=== PATIENT | female | born 1935 | race Caucasian/White ===

== ENCOUNTER 2018-09-16 13:37 | Inpatient (IN) | payer MEDICARE, MEDICAID ==
[~2018-09-16] VITALS: Ht 152.4 cm; Wt 79.8 kg
[2018-09-16 13:59] VITALS: BP 128/59
[2018-09-16] MEDS ORDERED: ADVAIR 250-501 EACH INH (14:16)
[2018-09-16] MEDS ORDERED: CARVEDILOL3.125 MG PO (14:16)
[2018-09-16] MEDS ORDERED: ASPIRIN81 M2 PO (14:16)
[2018-09-16] MEDS ORDERED: EXELON1 EAC2 TRANSDERM (14:17)
[2018-09-16] MEDS ORDERED: CALCIUM 500 +1 EAC5 PO (14:18)
[2018-09-16] MEDS ORDERED: ZOCOR20 MG PO (14:18)
[2018-09-16] MEDS ORDERED: VERAPAMIL E.R240 M1 PO (14:18)
[2018-09-16] MEDS ORDERED: REMERON15 MG PO (14:18)
[2018-09-16] MEDS ORDERED: COUMADIN 1MG TAB1 M1 PO ×2 (14:20→14:21)
[2018-09-16] MEDS ORDERED: TYLENOL EXTRA500 MG PO (14:21)
[2018-09-16] MEDS ORDERED: VENTOLIN HFA 1818 GM INH (14:22)
[2018-09-16 14:47] LABS: ABSOLUTE BASOPHILS 0.1 thou/uL (0.0-0.2); ABSOLUTE EOSINOPHILS 0.3 thou/uL (0.0-0.7); ABSOLUTE MONOCYTES 0.6 thou/uL (0.0-1.2); ABSOLUTE NEUTROPHILS 4.3 thou/uL (1.6-8.1); BASOPHILS 1.1 %; EOSINOPHILS 4.1 %; HEMATOCRIT 28.8 % (37.0-47.0); LYMPHOCYTES 15.7 %; MCH 33.7 pg (26.0-34.0); MCHC 34.7 g/dL (28.0-37.0); MCV 97.2 fL (80.0-100.0); MPV 8.3 fl. (7.2-11.1); NUCLEATED RBCS 0 /100WBC; PLATELET COUNT* 141 thou/uL (150-400); POLYS 69.1 %; RBC 2.97 mil/uL (4.20-5.00); RDW-CV 14.1 % (10.5-14.5); WBC 6.2 thou/uL (4.0-11.0)
[2018-09-16 14:57] LABS: ANION GAP 7 mmol/L (7-16); BUN 29 mg/dL (7-18); CALCIUM 8.2 mg/dL (8.5-10.1); CHLORIDE 102 mmol/L (98-107); CO2 29 mmol/L (21-32); CREATININE 1.8 mg/dL (0.6-1.3); GLUCOSE 105 mg/dL (70-99); POTASSIUM 4.1 mmol/L (3.5-5.1); SODIUM 138 mmol/L (136-145)
[2018-09-16 14:58] LABS: PROTIME 20.6 Seconds (9.20-11.50)
[2018-09-16 15:04] LABS: ALBUMIN 2.9 g/dL (3.4-5.0); ALKALINE PHOSPHATASE 62 U/L (46-116); LIPASE 79 U/L (73-393); SGOT 16 U/L (15-37); SGPT 18 U/L (30-65); TOTAL BILIRUBIN 0.7 mg/dL (<0.1-1.0); TOTAL PROTEIN 6.3 g/dL (6.4-8.2); TROPONIN-I LEVEL <0.06 ng/mL (<0.06)
[2018-09-16 16:22] LABS: URINE BILIRUBIN NEGATIVE (Negative); URINE BLOOD NEGATIVE (Negative); URINE CLARITY CLEAR; URINE COLOR YELLOW; URINE GLUCOSE-RANDOM NEGATIVE (Negative); URINE KETONES NEGATIVE (Negative); URINE LEUKOCYTES-REFLEX 1+ (Negative); URINE NITRITE-REFLEX NEGATIVE (Negative); URINE PROTEIN NEGATIVE (Negative); URINE UROBILINOGEN 0.2 E.U./dl (0.2-1.0)
[2018-09-16 16:31] LABS: BACTERIA-REFLEX 1-9 Few /HPF (None Seen); CASTS None Seen /LPF (None Seen); CRYSTALS None Seen /LPF (None Seen); SQUAMOUS >10 Many /LPF (0-3); URINE RBC None Seen /HPF (0-2)
[2018-09-16 17:56] VITALS: BP 108/63
[2018-09-16 18:51] VITALS: BP 135/63
[2018-09-16 20:00] VITALS: BP 104/72
[2018-09-17 00:15] VITALS: BP 123/55
[2018-09-17 04:00] VITALS: BP 133/64
[2018-09-17 08:00] VITALS: BP 134/62
[2018-09-17 12:00] VITALS: BP 126/50
--- NOTE | 2018-09-17 12:41 | EKG ---
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[place] : [id number] Requested By: Payal Booth Order Number: [id number] MD: Erick Rooney Measurements Intervals [place] Rate: 70 P: ND: 204 QRS: 205 QRSD: 148 T: 35 QT: 433 QTc: 468 Interpretive Statements Atrial-paced rhythm Nonspecific intraventricular conduction delay Inferior infarct, old Probable lateral infarct, age indeterminate No previous ECG available for comparison Electronically Signed On 09-17-2018 12:41:12 RAPID TRANSIT OPERATOR by Erick Rooney [email or web address] <ELECTRONICALLY SIGNED> By: Erick Rooney MD, FAC 09/17/18 1241 1435 1435 Erick Rooney MD, [facility] /EPI
[2018-09-17 16:00] VITALS: BP 125/52
[2018-09-17 21:00] VITALS: BP 139/63
[2018-09-18] VITALS (7 sets, daily range): BP systolic 113–146; BP diastolic 57–66
[2018-09-18 05:05] LABS: HEMATOCRIT 24.9 % (37.0-47.0); HEMOGLOBIN 8.7 gm/dL (12.0-15.0); MCHC 34.7 g/dL (28.0-37.0); MCV 97.9 fL (80.0-100.0); MPV 8.5 fl. (7.2-11.1); RBC 2.55 mil/uL (4.20-5.00); RDW-CV 14.1 % (10.5-14.5); WBC 5.9 thou/uL (4.0-11.0)
[2018-09-18 05:23] LABS: BE -1.3 mmol/L (-2 to +3); HCO3 22.9 mmol/L (22.0-26.0); PCO2 36.1 mmHg (35.0-45.0)
[2018-09-18 05:25] LABS: PO2 360.3 mmHg (75.0-100.0)
[2018-09-18 05:41] LABS: URINE BILIRUBIN NEGATIVE (Negative); URINE BLOOD NEGATIVE (Negative); URINE CLARITY CLEAR; URINE COLOR YELLOW; URINE GLUCOSE-RANDOM NEGATIVE (Negative); URINE KETONES NEGATIVE (Negative); URINE LEUKOCYTES-REFLEX NEGATIVE (Negative); URINE NITRITE-REFLEX NEGATIVE (Negative); URINE PROTEIN NEGATIVE (Negative); URINE SPECIFIC GRAVITY 1.015 (1.005-1.030); URINE UROBILINOGEN 0.2 E.U./dl (0.2-1.0)
[2018-09-18 05:43] LABS: CALCIUM 7.8 mg/dL (8.5-10.1); CREATININE 1.4 mg/dL (0.6-1.3); MAGNESIUM 1.9 mg/dL (1.8-2.4); POTASSIUM 4.2 mmol/L (3.5-5.1)
[2018-09-19 04:00] VITALS: BP 151/72
[2018-09-19 07:54] VITALS: BP 139/58
[2018-09-19 09:52] LABS: ABSOLUTE BASOPHILS 0.1 thou/uL (0.0-0.2); ABSOLUTE EOSINOPHILS 0.4 thou/uL (0.0-0.7); ABSOLUTE MONOCYTES 0.4 thou/uL (0.0-1.2); ABSOLUTE NEUTROPHILS 4.3 thou/uL (1.6-8.1); BASOPHILS 1.2 %; HEMATOCRIT 29.2 % (37.0-47.0); HEMOGLOBIN 10.1 gm/dL (12.0-15.0); LYMPHOCYTES 16.7 %; MCH 33.8 pg (26.0-34.0); MCHC 34.4 g/dL (28.0-37.0); MCV 98.3 fL (80.0-100.0); MONOCYTES 6.2 %; MPV 7.7 fl. (7.2-11.1); NUCLEATED RBCS 0 /100WBC; PLATELET COUNT* 204 thou/uL (150-400); POLYS 69.9 %; RBC 2.97 mil/uL (4.20-5.00); RDW-CV 14.4 % (10.5-14.5); WBC 6.1 thou/uL (4.0-11.0)
[2018-09-19 10:04] LABS: ALBUMIN 2.8 g/dL (3.4-5.0); CALCIUM 8.6 mg/dL (8.5-10.1); CREATININE 1.5 mg/dL (0.6-1.3); TOTAL BILIRUBIN 1.2 mg/dL (<0.1-1.0); TOTAL PROTEIN 6.4 g/dL (6.4-8.2)
[2018-09-19 10:55] LABS: INR 1.1; PROTIME 10.9 Seconds (9.20-11.50)
[2018-09-19 11:15] VITALS: BP 165/63
--- NOTE | 2018-09-19 15:29 | 2DMMODE ---
[place] [address] 2 D/M-MODE ECHOCARDIOGRAM Name: LIZJOHANA M Room: [address] [place] [facility]#: [id number] Admission: 09/19/18 Attend Phys: Eder Ramires, Discharge: Date of : 39 Date of Service: 09/19/18 1528 Report #: [id number] THIS REPORT FOR: //name// APPROVED REPORT Study performed: 09/19/2018 11:20:38 EXAM: Comprehensive 2D, Doppler, and color-flow Echocardiogram Patient Location: In-Patient Room #: [facility] BSA: 1.77 HR: 70 bpm BP: 165/63 mmHg Other Information Study Quality: Fair Technically limited study due to inability to position patient. Indications Atrial Fibrillation 2D Dimensions IVSd: 15.00 (7-11mm) LVOT Diam: 20.67 (18-24mm) LVDd: 40.81 mm PWd: 9.61 (7-11mm) Ascending Ao: 31.80 (22-36mm) LVDs: 24.55 (25-40mm) Aortic Root: 32.45 mm Volumes Left Atrial Volume (Systole) LA ESV Index: 9.60 mL/m2 Aortic Valve AoV Peak Prasanna.: 1.69 m/s AO Peak Gr.: 11.46 mmHg LVOT Max P.41 mmHg AO Mean Gr.: 5.89 mmHg LVOT Mean P.72 mmHg LVOT Max V: 1.36 m/s AO V2 VTI: 28.41 cm LVOT Mean V: 0.89 m/s RAINA (VTI): 2.92 cm2 LVOT V1 VTI: 24.71 cm Mitral Valve E/A Ratio: 0.72 MV Decel. Time: 217.55 [place] [address] 2 D/M-MODE ECHOCARDIOGRAM Name: JOHANA HILL Room: [address] [place] .R.#: [id number] Admission: 09/19/18 Attend Phys: Eder Ramires, Discharge: Date of : 39 Date of Service: 09/19/18 1528 Report #: [id number] MV E Max Prasanna.: 0.68 m/s MV PHT: 63.09 ms MVA (PHT): 3.49 cm2 TDI E/Lateral E': 8.50 E/Medial E': 8.50 Medial E' Prasanna.: 0.08 m/s Lateral E' Prasanna.: 0.08 m/s Pulmonary Valve PV Peak Prasanna.: 1.23 m/s PV Peak Gr.: 6.10 mmHg Tricuspid Valve RAP Estimate: 5.00 mmHg TR Peak Gr.: 28.66 mmHg RVSP: 33.66 mmHg PA Pressure: 33.66 mmHg Left Ventricle The left ventricle is normal size. There is normal LV segmental wall motion. There is normal left ventricular wall thickness. Left ventricular systolic function is normal. The left ventricular ejection fraction is within the normal range. LVEF is 55-60%. Grade I - abnormal relaxation pattern. Right Ventricle The right ventricle is normal size. The right ventricular systolic function is normal. Pacemaker lead is present in the right ventricle. Atria The left atrium size is normal. Pacemaker lead is present in the right atrium. Aortic Valve Moderate aortic valve sclerosis. No aortic regurgitation is present. There is no aortic valvular stenosis. Mitral Valve The mitral valve is normal in structure. There is no mitral valve regurgitation noted. No evidence of mitral valve stenosis. Tricuspid Valve The tricuspid valve is normal in structure. Mild tricuspid regurgitation. Pulmonic Valve The pulmonary valve is normal in structure. [place] [address] 2 D/M-MODE ECHOCARDIOGRAM Name: JOHANA HILL Room: [address] [place] [facility]#: [id number] Admission: 09/19/18 Attend Phys: Eder Ramires, Discharge: Date of : 39 Date of Service: 09/19/18 1528 Report #: [id number] valvular regurgitation. Great Vessels Aortic root is mildly dilated. IVC is normal in size and collapses >50% with inspiration. Pericardium There is no pericardial effusion. Pleural effusion <Conclusion> The left ventricle is normal size. There is normal left ventricular wall thickness. Left ventricular systolic function is normal. The left ventricular ejection fraction is within the normal range. LVEF is 55-60%. Grade I - abnormal relaxation pattern. The right ventricle is normal size. The left atrium size is normal. Moderate aortic valve sclerosis. No aortic regurgitation is present. There is no aortic valvular stenosis. The mitral valve is normal in structure. The tricuspid valve is normal in structure. Mild tricuspid regurgitation. Aortic root is mildly dilated. IVC is normal in size and collapses >50% with inspiration. There is no pericardial effusion. There is normal LV segmental wall motion. <ELECTRONICALLY SIGNED> By: Thiago Raymond MD, [facility] 09/19/18 1528 1528 1528 Thiago Raymond MD, FACC /INF
[2018-09-19 15:47] VITALS: BP 126/62
[2018-09-19 20:00] VITALS: BP 134/64
[2018-09-20] VITALS: BP 142/70
[2018-09-20 04:00] VITALS: BP 170/85
[2018-09-20 05:15] LABS: ABSOLUTE EOSINOPHILS 0.4 thou/uL (0.0-0.7); ABSOLUTE LYMPHOCYTES 1.3 thou/uL (0.8-5.3); ABSOLUTE MONOCYTES 0.4 thou/uL (0.0-1.2); ABSOLUTE NEUTROPHILS 4.3 thou/uL (1.6-8.1); BASOPHILS 0.3 %; EOSINOPHILS 6.1 %; HEMATOCRIT 27.6 % (37.0-47.0); HEMOGLOBIN 9.6 gm/dL (12.0-15.0); LYMPHOCYTES 20.1 %; MCH 34.2 pg (26.0-34.0); MCHC 34.9 g/dL (28.0-37.0); MONOCYTES 6.3 %; MPV 7.8 fl. (7.2-11.1); NUCLEATED RBCS 0 /100WBC; PLATELET COUNT* 210 thou/uL (150-400); POLYS 67.2 %; RBC 2.81 mil/uL (4.20-5.00); RDW-CV 14.5 % (10.5-14.5); WBC 6.4 thou/uL (4.0-11.0)
[2018-09-20 05:24] LABS: CALCIUM 8.6 mg/dL (8.5-10.1); CREATININE 1.4 mg/dL (0.6-1.3); POTASSIUM 3.8 mmol/L (3.5-5.1)
[2018-09-20 05:43] LABS: PREALBUMIN 17.7 mg/dL (18.0-35.7)
[2018-09-20 08:00] VITALS: BP 140/71
[2018-09-20 12:00] VITALS: BP 111/40
[2018-09-20 16:00] VITALS: BP 146/68
[2018-09-20 19:50] VITALS: BP 145/68
[2018-09-21] VITALS: BP 151/71
[2018-09-21 03:57] VITALS: BP 164/58
[2018-09-21 08:00] VITALS: BP 135/70
[2018-09-21 11:23] VITALS: BP 135/70
[2018-09-21 11:48] VITALS: BP 135/65
--- NOTE | 2018-09-23 13:39 | CON ---
[address] [address] CONSULTATION Name: JOHANA HILL Janeth Room: [address] [place] M.R.#: [id number] Admission: 09/19/18 Attend Phys: Eder Ramires MD Discharge: 09/21/18 Date of : 39 Report #: [id number] THIS REPORT FOR: //name// CC: Tae Rae REQUESTING PHYSICIAN: Dr. Ashia Mina. CHIEF COMPLAINT: Fall. HISTORY OF PRESENT ILLNESS: The patient is an 83-year-old patient who has a history of atrial arrhythmia, permanent pacemaker and oral anticoagulation, had a mechanical fall at her nursing facility. She developed a hematoma measuring 9 cm in length in her lower back. Her anticoagulation has been held and presently she is hemodynamically stable. She has minimal complaints except for back pain. Apparently, she does not fall regularly, but a lot of her history is obtained from chart records as the patient has dementia and is a poor general medical practitioner. Currently, she denies chest pain, pressure, or shortness of breath. She is alert, no apparent distress. Her cardiac telemetry demonstrates an atrial paced and ventricular sensing rhythm with a conduction delay, and she has not had any tachyarrhythmias while on telemetry for the past 3 days. She has ruled out for an acute myocardial infarction. PAST MEDICAL HISTORY: She has a permanent pacemaker. Unfortunately, I do not have her records from [facility] where she gets her care, but she does see her battery container finishing hand fairly regularly. She has a history of atrial arrhythmias. She has a history of thrombosis, details not otherwise available. She has a history of mild kidney disease. She was volume depleted on presentation. She also has a history of coronary artery disease and remote PCI. HOME MEDICATIONS: Include aspirin 81 mg daily, Coreg 3.125 mg p.o. b.i.d., Exelon, mirtazapine, Zocor 20 mg at bedtime, verapamil 120 mg daily, warfarin 2.5 mg Wednesday, Wednesday, Wednesday, 2 mg all other days; albuterol, fluticasone. REVIEW OF SYSTEMS: GENERAL: No fevers or chills. PULMONARY: No wheezing or cough. CARDIOVASCULAR: No chest pain. MUSCULOSKELETAL: Positive muscle weakness. NEUROLOGIC: Denies seizures. No headaches or blurry vision. EYES: Denies any blurred vision or loss of vision. THROAT: Denies any slurred speech. PHYSICAL EXAMINATION: VITAL SIGNS: Blood pressure is 113/58, [place] 95[place] [address] CONSULTATION Name: JOHANA HILL Room: [address] [place] ..#: [id number] Admission: 09/19/18 Attend Phys: Eder Ramires MD Discharge: 09/21/18 Date of : 39 Report #: [id number] GENERAL: This is a pleasant elderly female. She is a poor historian. She is breathing comfortably, eating lunch. HEENT: Unremarkable. Eyes: EOMs intact. No facial asymmetry. NECK: Supple. No jugular venous distention. CARDIOVASCULAR: Regular. I cannot hear a murmur or S3. LUNGS: Clear to auscultation. ABDOMEN: Nontender, nondistended. EXTREMITIES: There is no peripheral edema. SKIN: There is a large ecchymosis involving the lumbar spine area, approximately 12-15 cm across. IMAGING: CT scan of the abdomen demonstrated an 8.6 x 3.7 mm hematoma posterior to the right superior iliac bone. LABORATORY DATA: Hemoglobin is 8.7. INR on presentation was 2.0. Creatinine on presentation was 1.4. Troponin I was 0.06. IMPRESSION: 1. Mechanical fall. This is concerning in a patient who has requirements for oral anticoagulation from an atrial arrhythmia apparently. We are requesting records from [facility]. 2. Oral anticoagulation. I would hold her anticoagulation for the time being until seen by her usual battery container finishing hand to make any further determinations as to whether or not she should resume it. 3. Atrial fibrillation. She remains atrial paced without tachy events or hemodynamic instability. 4. Status post permanent pacemaker. We will try to obtain device information and have it interrogated. <ELECTRONICALLY SIGNED> By: Erick Rooney MD, FACC 09/23/18 1339 1312 1949Erick Rooney MD, FACC /nt
== END 2018-09-21 14:30 | disposition home health service (06) | DRG 177 ==
LOC: M.ERS 13:37 → M.TBA-ER 17:09 → M.2W 17:09
PROVIDERS: Internal Medicine; Physician Assistant; ADMIT Internal Medicine
DX: J69.0 Pneumonitis due to inhalation of food and vomit (principal); I50.33 Acute on chronic diastolic (congestive) heart failure; I13.0 Hypertensive heart and chronic kidney disease with heart failure and stage 1 through stage 4 chronic kidney disease, or unspecified chronic kidney disease; N17.9 Acute kidney failure, unspecified; N39.0 Urinary tract infection, site not specified; D62 Acute posthemorrhagic anemia; G93.40 Encephalopathy, unspecified; F03.90 Unspecified dementia, unspecified severity, without behavioral disturbance, psychotic disturbance, mood disturbance, and anxiety; I48.91 Unspecified atrial fibrillation; N18.9 Chronic kidney disease, unspecified; E78.5 Hyperlipidemia, unspecified; S30.1XXA Contusion of abdominal wall, initial encounter; W18.39XA Other fall on same level, initial encounter; I25.10 Atherosclerotic heart disease of native coronary artery without angina pectoris; S20.221A Contusion of right back wall of thorax, initial encounter; Z86.711 Personal history of pulmonary embolism; Y93.89 Activity, other specified; Y92.89 Other specified places as the place of occurrence of the external cause; Y99.8 Other external cause status; Z95.5 Presence of coronary angioplasty implant and graft; Z95.0 Presence of cardiac pacemaker; Z79.01 Long term (current) use of anticoagulants; Z79.82 Long term (current) use of aspirin; Z79.51 Long term (current) use of inhaled steroids; Z79.899 Other long term (current) drug therapy; Z28.21 Immunization not carried out because of patient refusal